=== PATIENT | male | born 1940 | race Caucasian/White ===

== ENCOUNTER 2016-09-24 18:04 | Inpatient (IN) | payer OTHER ==
[~2016-09-24] VITALS: Ht 180.3 cm; Wt 76.0 kg
[~2016-09-24 18:04] MED LIST: BAYER CHEWABLE81 MG PO; BENICAR HCT 40-1 TA1 PO; BROVANA15 MCG/2 M INH; BUMEX 1 MG TAB1 MG PO; CARAFATE1 G PO; CHRONULAC30 ML PO; CORDARONE200 MG PO; DALIRESP500 MCG PO; ELIQUIS2.5 MG PO; FLOMAX0.4 MG PO; FLORAJEN3 CAPS460 MG PO; IPRAT-ALBUT 0.5-3 ML UPD; K-DUR20 MEQ PO; LASIX40 MG PO; MAG-OX 400 MG400 MG PO; MELATONIN 3 MG1 TAB PO; MUCINEX DM ER1 EAC1 PO; MUCINEX600 MG PO; NEURONTIN 300300 MG PO; NORVASC5 MG PO; NYSTATIN ORAL SU5 ML PO; OMEPRAZOLE20 M1 PO; ONCOLOGY MOUTHWA5 ML PO; PLAVIX75 MG PO; PRAVACHOL20 MG PO; PREDNISONE20 MG PO; PRILOSEC20 MG PO; PULMICORT0.5 MG/21 UPD; SINGULAIR10 MG PO; TESSALON PERLE100 MG PO; TOPROL XL200 MG PO; VIBRAMYCIN 100100 MG PO; VOLTAREN100 MG PO
[2016-09-24 19:00] VITALS: BP 110/60
--- NOTE | 2016-09-24 19:00 | NUR ---
Assessment complete. See flowsheet. Pt awake with daughter at bedside with VSS. Pt alert, oriented to person, place, time and situation. Pupils size 3 bilaterally ERRLA. Pt receiving O2 @ 3L NC with respirations shallow/unlabored. Lung sounds CTA with diminished lower lobes. HR CAF with S1S2 auscultated. All peripheral pulses +2 with capillary refill <3 seconds. PIV site to right forearm CDI no s/s infection or infiltration with NS infusing @ 10cc/hr KVO rate. BS + to all quadrants. Abdomen flat, non-tender. Barksdale catheter secure retrieving concentrated, michel urine. SCDs secure to lower extremities bilaterally. Pt pulled up in bed and positioned to left side with arms and heels bridged and HOB elevated to 30 degrees. temp 97.2F temporally and room warmed. Call light and bedside table placed within pt reach. Pt denies further needs at this time. CPOC.
[2016-09-24 20:00] VITALS: BP 102/65
[2016-09-24 21:00] VITALS: BP 93/68
--- NOTE | 2016-09-24 21:00 | NUR ---
Pt helped to bedpan for stool approx 200cc liquid, brown-green with bedbath plus gown and linen changes completed. Mepilex dressing removed for skin inspection to coccyx/buttox yields a reddened coccyx and a midline skin break to the inner lower portion of the rectal crevice measuring 1" in height staged II with no drainage noted. Site cleansed and mepilex dressing applied and secured. Pt pulled up in bed and positioned to left side. Dilaudid SENIOR TRAINER setup completed. See MAR. PM medications administered. See MAR. Pt provided with armando mathew per request. No further request at this time. Call light and bedside table remain within pt reach. CPOC.
[2016-09-24 21:15] VITALS: BP 110/60; BMI 23.4
[2016-09-24 22:00] VITALS: BP 106/65
[2016-09-24 23:00] VITALS: BP 105/60
--- NOTE | 2016-09-24 23:00 | NUR ---
Reassessment complete. See flowsheet. Pt resting quietly with VSS. No s/s pain or distress and awakens easily to verbal stimulation with no neuro changes to note. Pt remains calm and cooperative. O2 @ 3L NC. Respirations unlabored. Lung sounds remain CTA with diminished lower lobes. HR CAF with S1S2 auscultated. All peripheral pulses remain +2 with capillary refill <3 seconds. PIV site remains CDI with NS @ KVO with Dilaudid HOP SORTER infusing @ 0.5mg/hr per order. BS +. Barksdale remains secure retrieving concentrated, michel urine. Pt helped to position to back with HOB @ 30 degrees. Pt denies further needs at this time. Call light and bedside table remain within pt reach. CPOC.
[2016-09-25] VITALS (12 sets, daily range): BP systolic 92–111; BP diastolic 65–75; Ht 180.3 cm; Wt 76.0 kg
--- NOTE | 2016-09-25 01:00 | NUR ---
Pt awake and conversive. VSS. Pt remains calm and cooperative and provided with ice water per request. No further request at this time. Call light and bedside table remain within pt reach. CPOC.
--- NOTE | 2016-09-25 03:00 | NUR ---
Pt resting and awakened for repositioning to back with HOB elevated. VSS. No changes to note. Pt denies pain. O2 @ 3L NC. HR CAF. BS +. PIV site CDI with NO IVF changes to note. Barksdale remains secure retrieving concentrated, michel urine. Pt denies further needs at this time. Call light and bedside table remain within reach. CPOC.
--- NOTE | 2016-09-25 04:18 | NUR ---
Pt nauseated and refusing IV Dilaudid at this time. Dilaudid WAGE AND SALARY SPECIALIST turned off per pt request. Pt vomiting approx 200cc clear fluid at this time. Zofran 4mg IV administered. See NOV.
--- NOTE | 2016-09-25 05:00 | NUR ---
Pt resting with VSS and allowed to continue resting undisturbed. Call light and bedside table remain within pt reach. CPOC.
--- NOTE | 2016-09-25 12:18 | NUR ---
COMPLETE BED BATH AND LINEN CHANGE. PT'S FAMILY ASSISTED WITH SHAVING. BROWN CARE COMPLETED. BABY POWDER AND DEODORANT APPLIED.
--- NOTE | 2016-09-25 19:00 | NUR ---
Assessment complete. See flowsheet. Pt awake upon entrance into room with VSS. Pt alert, following all commands and conversation with no neuro deficits to note. Pt moving all extremities with 3/5 strength and no edema noted. Respirations shallow and unlabored. Lung sounds present expiratory wheezing to all gonzalez. Pt receiving O2 @ 3L NC. HR CAF with S1S2 auscultated. All peripheral pulses +2 with capillary refill <3 seconds. BS +. Barksdale secure retrieving concentrated, michel urine. Temp 97.2F orally. Pt denies pain. Pt pulled up in bed and repositioned to left side. Air overlay mattress. SCDs secured to lower extremities bilaterally. Arms and heels bridged. Pt provided with fresh soda per request. Call light and bedside table remain within pt reach. CPOC.
--- NOTE | 2016-09-25 21:00 | NUR ---
Pt awake and repositioned to right side. HOB @ 30 degrees. Pt denies further needs at this time and continues to watch television with VSS. Call light and bedside table remain within pt reach. CPOC.
--- NOTE | 2016-09-25 23:00 | NUR ---
Pt watching television with at bedside. VSS. Pt denies pain at this time. PIV saline locked. Dressing changes to right wrist and elbow skin abrasions completed after sites cleansed and dried. PIV site redressed. Pt helped to position to back with HOB @ 30 degrees. No other changes to note. Fresh clear soda provided per pt request. Call light and bedside table remain within pt reach. Further needs denied. CPOC.
--- NOTE | 2016-09-26 01:00 | NUR ---
Pt helped to bedpan with no stool produced. Linen changes completed afterwards with pericare. Pt pulled up in bed and positioned to left side. HOB elevated to 30 degrees with arms and heels bridged. Pt denies pain at this time. Further requests denied. Call light and bedside table remain within pt reach. CPOC.
[2016-09-26 03:00] VITALS: BP 101/70
--- NOTE | 2016-09-26 03:00 | NUR ---
Pt slightly confused and requesting his cap gun and his "piss jug" and reoriented. Pt remains calm but does not follow conversation and strays to other stories that do not make sense. O2 @ 3L NC. HR CAF. Lung sounds present crackles to all gonzalez with expiration. Pt encouraged to cough with no sputum produced. BS +. Barksdale remains secure and pt reminded to void and it will collect into the collection bag. Pt verbalizes understanding. Pt positioned to back for AM CXR. Arms and heels bridged. Call light and bedside table remain within pt reach. CPOC.
--- NOTE | 2016-09-26 05:00 | NUR ---
Pt confused and throwing cup of ice water at room door. Pt calmed. from waiting room and now at bedside. Linen change completed. Pt calm now. VSS.
[2016-09-26 07:00] VITALS: BP 109/73
--- NOTE | 2016-09-26 09:35 | NUR ---
REPORT CALLED TO ARABELLA HARVEY. PT TRANSFERED WITH FAMILY AND ALL PERSONAL BELONGINGS TO ROOM 2240 VIA BED. FAMILY ORIENTED TO ROOM. C/L IN REACH.
--- NOTE | 2016-09-26 10:05 | NUR ---
RECIEVED PATIENT VIA BED WITH NURSE FROM ICU. PATIENT TALKING CONTINUOUSLY, HOLDING HIS HANDS UP IN THE AIR IF HE IS GRABBING THINGS THAT ARE NOT THERE. ASKED PATIENT "WOULD YOU LIKE SOMETHING TO DRINK?" PATIENT STATED "YEAH I HAVE SOME COFFEE RIGHT HERE." THEN GRABBED THE AIR THOUGH HE WAS HOLDING A CUP. BROUGHT PATIENT ICE-WATER. FAMILY DENIES NEEDS. PATIENT IS MOVING HIS ARMS AND LEGS AROUND IN THE BED. BED IN LOWEST POSITION, CALL LIGHT IN REACH. FAMILY AT BEDSIDE. PATIENT HAS A NASAL CANNULA ON RECIEVING 5L/MIN OF OXYGEN.BROWN CATHETER DRAINING TO GRAVITY.
--- NOTE | 2016-09-26 11:05 | NUR ---
PATIENT WIGGLED DOWN TO THE END OF THE BED WITH LEGS PARTIALLY OFF THE BED. WITH ASSIST FROM ANOTHER NURSE, GOT PATIENT BACK UP INTO THE BED. FAMILY AT BEDSIDE. SPOKE WITH PATIENT'S ABOUT ATIVAN, AGREED STATING "YES LET'S TRY IT. HE IS SO RESTLESS I DO NOT WANT TO LEAVE HIM. THERE IS NO WAY I WILL BE ABLE TO TAKE HIM HOME IF THIS KEEPS UP."
--- NOTE | 2016-09-26 13:00 | NUR ---
PATIENT RESTING QUIETLY WITH EYES CLOSED.
[2016-09-26 13:40] VITALS: BP 107/68
--- NOTE | 2016-09-26 15:25 | NUR ---
HOSPICE NURSE AT BEDSIDE. PATIENT MOVING AROUND IN THE BED, ARMS AND LEGS. PATIENT TALKING TO PEOPLE NOT THERE. AUDIBLE CRACKLES WITH RESPIRATIONS. PULLED PATIENT UP IN BED WITH HOSPICE NURSE. HOB 40 DEGREES. ADMINISTERED ATIVAN FOR RESTLESSNESS.
[2016-09-26 16:07] VITALS: BP 116/72
--- NOTE | 2016-09-26 17:57 | NUR ---
STATED DILAUDID MAKES PATIENT NAUSEOUS. PAGED 'S OFFICE, SPOKE WITH GARFIELD CAMPBELL SHE STATED SHE WILL CALL . SHANNAN CALLED BACK STATED " SAID TO DO MORPHINE 2MG IV Q2HP"
--- NOTE | 2016-09-26 19:30 | NUR ---
RECIEVED SHIFT REPORT. PT IS LYING IN BED. PT AROUSES TO VOICE. O2 @ 5 PER NASAL CANNULA. BROWN IS DRAINING URINE BY GRAVITY. PT REQUIRES ASSISTANCE TURNING IN BED FOR COMFORT AND SKIN CARE. PT SHOWS NO SIGNS OF PAIN AT THIS TIME. FAMILY IS AT BEDSIDE. NO NEEDS ARE VOICED. WILL CONTINUE TO MONITOR. SIDE RAILS ARE UP X 2. BED IS IN LOWEST POSITION. CALL LIGHT IS WITHIN REACH.
--- NOTE | 2016-09-26 20:00 | NUR ---
SHIFT ASSESSMENT COMPLETED. PT STATUS REMAINS UNCHANGED FROM PREVIOUS. WILL MONITOR. FAMILY AT BEDSIDE. NO NEEDS VOICED. SIDE RAILS X 2. BED LOW. CALL LIGHT IN REACH.
--- NOTE | 2016-09-26 23:30 | NUR ---
PT WRITHING IN BED AND LEGS ALMOST HANGING OFF. PT FAMILY REQUESTING PRN MORPHINE AT THIS TIME. 2MG ADMINISTERED PER ORDER. PT ALSO WITH SECRETIONS. ADMINISTERED PRESCRIBED PRN ATROPINE DROPS. POSITIONED FOR COMFORT. NO FURTHER NEEDS. WILL MONITOR. FAMILY AT BEDSIDE. SIDE RAILS X 2. BED LOW. CALL LIGHT IN REACH.
--- NOTE | 2016-09-27 07:34 | NUR ---
REQUESTED AND GIVEN 2MG MORPHINE SLOW IVP FOR C/O GENERALIZED PAIN. WILL MONITOR.
[2016-09-27 08:21] VITALS: BP 120/82
--- NOTE | 2016-09-27 08:34 | NUR ---
FAMILY REQUESTED AND PATIENT GIVEN 1 GT ATROPINE PER ORDERS FOR RESTLESSNESS. WILL MONITOR.
[2016-09-27 12:45] VITALS: BP 109/70
--- NOTE | 2016-09-27 13:34 | NUR ---
PATIENT IS VERY RESTLESS. CONFUSED AT THIS TIME. FAMILY REQUESTED AND PATIENT GIVEN 2MG MORPHINE SLOW IVP FOR PAIN. WILL MONITOR.
--- NOTE | 2016-09-27 16:00 | NUR ---
BARREL LOADER INITIATED TO IMPROVE PAIN MANAGEMENT. FAMILY IN AGREEMENT WITH THIS.
[2016-09-27 16:30] VITALS: BP 109/66
--- NOTE | 2016-09-27 18:29 | NUR ---
RESTING QUIETLY WITH EYES CLOSED. FAMILY AT BEDSIDE. NO CHANGES NOTED AT THIS TIME
[2016-09-27 19:00] VITALS: BP 112/99
--- NOTE | 2016-09-27 19:53 | NUR ---
EXISTING SCOPOLAMINE PATCH REMOVED BEHIND PT'S RIGHT EAR AND NEW PATCH APPLIED PRESCRIBED BEHING PT'S LEFT EAR. FAMILY AT BEDSIDE. BROWN PATENT AND DRAINING TO GRAVITY. FIRST STEP OVERLAY IN USE. OXYGEN ON 5L VIA NC. RIGHT FOREARM IV PATENT AND INFUSING PRESCRIBED FLUIDS AND CORD TIRE BUILDER MORPHINE AT 1MG/HR CONTINUOUS. PT IS ALERT, BUT CONFUSED. ASSESSMENT PERFORMED PER FLOWSHEET. PRN ATROPINE DROP ADMINISTERED SL FOR INCREASED SECRETIONS. PROVIDED PT WITH ICE WATER FOR A DRINK. CALL LIGHT IN REACH, WILL CONTINUE WITH COMFORT MEASURES.
--- NOTE | 2016-09-27 21:30 | NUR ---
PT SLEEPING AT THIS TIME. FAMILY REMAINS AT BEDSIDE. NO CHANGES SINCE INITIAL ASSESSMENT. CALL LIGHT IN REACH, WILL CONTINUE WITH COMFORT MEASURES.
--- NOTE | 2016-09-28 03:27 | NUR ---
MORPHINE CHICK GRADER SYRINGE CHANGED D/T EMPTY SYRINGE AT THIS TIME. BROWN CARE PROVIDED WITH SOAP AND WATER. FAMILY REMAINS AT BEDSIDE. CALL LIGHT IN REACH. NO CHANGES SINCE INITIAL ASSESSMENT. WILL CONTINUE WITH PLAN OF CARE.
--- NOTE | 2016-09-28 06:34 | NUR ---
SCHEDULED LASIX ADMNISTERED WELL ATROPINE DROPS FOR INCREASED SECRETIONS. RECEIVING BREATHING TREATMENT AT THIS TIME. FAMILY REMAINS AT BEDSIDE. WILL CONTINUE WITH COMFORT MEASURES.
--- NOTE | 2016-09-28 07:28 | NUR ---
RESTING QUIETLY WITH EYES CLOSED. ROUSES TO VERBAL STIMULATION. LUNGS WITH CRACKLES AND WHEEZES THROUGHOUT LUNG HELLER. OCCASSIONAL NON PRODUCTIVE COUGH NOTED. SKIN IS INTACT WITHOUT REDNESS EXCEPT RIGHT ELBOW AND WRIST ABRASIONS. SOME REDNESS NOTED TO COCCYX AREA. IV TO RIGHT WRIST PATENT WITHOUT REDNESS AT INSERTION SITE. NO NEEDS NOTED. BROWN PATENT WITH CLEAR YELLOW URINE. FAMILY AT BEDSIDE.
[2016-09-28 07:54] VITALS: BP 133/70
--- NOTE | 2016-09-28 10:36 | NUR ---
RESTING QUIETLY IN BED. HOB UP 45 DEGREES. FAMILY AT BEDSIDE.
[2016-09-28 11:52] VITALS: BP 113/65
--- NOTE | 2016-09-28 12:00 | NUR ---
NO CHANGES AT THIS TIME. RESP ARE AT AROUND 12. FAMILY AT BEDSIDE.
--- NOTE | 2016-09-28 14:00 | NUR ---
NO CHANGES NOTED. NO NEEDS EXPRESSED. FAMILY AT BEDSIDE.
[2016-09-28 16:48] VITALS: BP 140/72
--- NOTE | 2016-09-28 18:15 | NUR ---
FAMILY AT BEDSIDE. SITTING UP IN BED OCCASSIONALLY CONVERSING WITH FAMILY. NO CHANGES NOTED.
--- NOTE | 2016-09-28 20:32 | NUR ---
PRN ZOFRAN ADMINISTERED AT THIS TIME PT IS VOMITING MEDIUM AMOUNT OF CLEAR LIQUID WITH PHLEGM. FAMILY AT BEDSIDE. PT PROVIDED WITH FRESH ICE WATER AND CLEAN GOWN. BROWN PATENT AND DRAINING TO GRAVITY. CALL LIGHT IN REACH OF . WILL CONTINUE WITH PLAN OF CARE.
[2016-09-28 21:18] VITALS: BP 113/70
--- NOTE | 2016-09-28 23:00 | NUR ---
FULL BED BATH PROVIDED AND PT LOTIONED DOWN. IV TO RIGHT FOREARM WITHOUT BLOOD RETURN. 22G IV STARTED TO PT'S RIGHT HAND X1 ATTEMPT. IV TO RIGHT FOREARM D/C WITH CATH TIP INTACT. BROWN PATENT AND DRAINING TO GRAVITY. FAMILY REMAINS AT BEDSIDE. ASSESSMENT PERFORMED PER FLOWSHEET. MEPILEX DRESSING REMAINS TO BUTTOCK. CALL LIGHT IN REACH OF FAMILY. WILL CONTINUE WITH PLAN OF CARE.
--- NOTE | 2016-09-29 03:30 | NUR ---
PT VOMITING MODERATE AMOUNT OF CLEAR LIQUID WITH PHLEGM. PRN ATIVAN AND ZOFRAN ADMINISTERED PER ORDER. PT IS VERY RESTLESS, BUT COMPLETELY ALERT AND ORIENTED. FAMILY REMAINS AT BEDSIDE. IV TO RIGHT HAND PATENT. CALL LIGHT IN REACH, WILL CONTINUE WITH PLAN OF CARE.
--- NOTE | 2016-09-29 08:14 | NUR ---
AWAKE AND ALERT. ORIENTED TO SELF. RESPONDS APPROPRIATLY TO YES NO QUESTIONS. FAMILY AT BEDSIDE. LUNGS HAVE WHEEZES AND CRACKLES THROUGHOUT LUNG HELLER. OCCASSIONAL DRY COUGH NOTED. SKIN IS INTACT WITHOUT REDNESS EXCEPT STAGE 2 TO COCCYX. IV TO RIGHT HAND PATENT WITHOUT REDNESS AT INSERTION SITE. BROWN PATENT WITH TEA COLORED URINE. O2 AT 5L NC. NO NEEDS NOTED. ON FIRST STEP OVERLAY.
[2016-09-29 08:15] VITALS: BP 113/61
[2016-09-29 11:46] VITALS: BP 111/69
--- NOTE | 2016-09-29 11:46 | NUR ---
FAMILY REQUESTED ATIVAN FOR LEGS JERKING. GIVEN 1MG SLOW IVP. WILL MONITOR.
--- NOTE | 2016-09-29 13:00 | NUR ---
RESTING QUIETLY WITH EYES CLOSED. NO NEEDS NOTED. FAMILY AT BEDSIDE.
--- NOTE | 2016-09-29 15:00 | NUR ---
REPOSITIONED PER [place] FAMILY REQUEST. NO NEEDS NOTED.
[2016-09-29 16:10] VITALS: BP 110/61
--- NOTE | 2016-09-29 18:12 | NUR ---
GIVEN LASIX ORDERED. FAMILY AT BEDSIDE. NO NEEDS NOTED. DENIES NAUSEA AT THIS TIME.
[2016-09-29 19:00] VITALS: BP 99/59
--- NOTE | 2016-09-29 21:41 | NUR ---
RESTING QUIETLY WIHT NO DISTRESS NOTED. O2 AT 5L PER NC ON. BILATERAL LUNG SOUNDS WITH WHEEZING NOTED. IV NS INFUSING TO RIGHT HAND WIHTOUT REDNESS OR EDEMA NOTED. PRINT AND PATTERN DESIGNER MORPHINE IN USE FOR PAIN CONTROL. CL IN REACH . FAMILY AT BEDSIDE.
--- NOTE | 2016-09-30 01:14 | NUR ---
POSITIONED FOR COMFORT.NO DISTRESS .FAMILY REMAINS AT BEDSIDE
--- NOTE | 2016-09-30 03:00 | NUR ---
EYES CLOSED RESP EVEN. NO DISTRESS NOTED.CL IN REACH. FAMILY REMAINS AT BEDSIDE.
--- NOTE | 2016-09-30 05:08 | NUR ---
PATIENT RESTING WITH EYES CLOSED AND NO DISTRESS NOTED. O2 @ 5L VIA NC. IV TO RIGHT HAND PATENT AND INFUSING 1MG CONT. MORPHINE. AT BEDSIDE.
--- NOTE | 2016-09-30 06:47 | NUR ---
EYES CLOSED RESP EVEN. NO CHANGE IN ASSESSMENT
--- NOTE | 2016-09-30 07:10 | NUR ---
PATIENT IS RESTING QUIETLY IN HI FOWL[place]. HE IS RECEIVING AN UPDRAFT TREATMENT. HE IS ALERT TO MY PRESENCE, MAKES EYE CONTACT AND WAVES FINGERS. IS RESTING WITH EYES CLOSED AT THE BEDSIDE.
[2016-09-30 08:04] VITALS: BP 102/62
--- NOTE | 2016-09-30 10:06 | NUR ---
PATIENT RESTING IN BED, MANY FAMILY MEMBERS AT THE BEDSIDE. HIS EYES ARE PARTIALLY CLOSED. RESPIRATIONS ARE SHALLOW, EVEN.
--- NOTE | 2016-09-30 15:42 | NUR ---
HOSPICE NURSE AT THE BEDSIDE. MANY FAMILY MEMBERS AROUND. HIS RESPIRATIONS ARE UNLABORED, WITH PAUSES BETWEEN BREATHS. BROWN REMAINS PATENT TO BEDSIDE DRAINAGE.
[2016-09-30 19:00] VITALS: BP 113/60
--- NOTE | 2016-09-30 20:30 | NUR ---
CHANGED SCOPALAMINE PATCH BEHIND LEFT EAR. REPOSITIONED PATIENT TO LEFT SIDE.
--- NOTE | 2016-10-01 01:00 | NUR ---
REPOSITIONED PATIENT TO RIGHT SIDE.
--- NOTE | 2016-10-01 04:00 | NUR ---
PATIENT SLEEPING COMFORTABLY. FAMILY ASKED THAT WE NOT MOVE HIM RIGHT NOW.
--- NOTE | 2016-10-01 05:30 | NUR ---
PATIENT SLEEPING SUPINE IN BED. HOB 40 DEGREES. AROUSES TO VOICE. RR EVEN AND UNLABORED. O2 @ 5L VIA NC. 0 S/S OF DISTRESS. DENIES PAIN AT THIS TIME. IV TO RIGHT HAND PATENT AND INFUSING MORPHINE CONT. AT 1MG/HR. BROWN SECURED WITH STATLOCK AND DRAINING TO GRAVITY. DRESSING TO COCCYX CDI. FAMILY AT BEDSIDE. B/A ON. SRX2. BED LOW. CALL LIGHT WITHIN REACH.
--- NOTE | 2016-10-01 07:30 | NUR ---
PATIENT IS SLEEPING, SPOUSE AND DAUGHTER AT BEDSIDE. ASKED FAMILY IF THEY NEEDED ANYTHING ANF THYE DENY.
[2016-10-01 08:10] VITALS: BP 110/70
--- NOTE | 2016-10-01 09:30 | NUR ---
PATIENT IS AWAKE, AROUSES TO VOICES, BUT HE IS LETHARGIC. FAMILY AT BEDSIDE, NO NEEDS NOTED AT THIS TIME.
--- NOTE | 2016-10-01 11:00 | NUR ---
PATIENT IS RESTING AND FAMILY IS SITTING AT BEDSIDE, NO NEEDS NOTED.
--- NOTE | 2016-10-01 11:50 | NUR ---
NO NEEDS AT THIS TIME.
--- NOTE | 2016-10-01 13:00 | NUR ---
PATIENT RESTING EASILY, NO NEEDS AT THIS TIME.
--- NOTE | 2016-10-01 17:00 | NUR ---
FAMILY DENIES NEEDS AT THIS TIME.
--- NOTE | 2016-10-01 18:30 | NUR ---
CHECKED ON PATIENT AND HE ACTUALLY ASKED FOR SOMETHING TO SPIT IN, HANDED HIM A BASIN AND HE WAS ABLE TO HOLD IT TO HIS FACE. DENIES ANY OTHER NEEDS.
[2016-10-01 19:00] VITALS: BP 113/79
--- NOTE | 2016-10-01 19:00 | NUR ---
PATIENT SLEEPING SUPINE IN BED. HOB 30 DEGREES. AROUSES TO VOICE. RR SHALLOW BUT UNLABORED. 0 S/S OF DISTRESS. DENIES PAIN. IV TO RIGHT HAND PATENT AND INFUSING MORPHINE 1MG/HR CONT. O2 @ 5L. BROWN SECURED WITH STATLOCK AND DRAINING TO GRAVITY. DRESSING TO COCCYX CDI. B/A ON. FAMILY AT BEDSIDE. SRX2. BED LOW. CALL LIGHT WITHIN REACH.
--- NOTE | 2016-10-02 03:57 | NUR ---
PATIENT RECEIVED BATH AND DRESSING CHANGE TO COCCYX. HAVE BEEN TURNING PATIENT Q2. ATTEMPTED TO TURN PATIENT NOW BUT FAMILY REQUESTED THAT WE LET HIM SLEEP.
[2016-10-02 07:49] VITALS: BP 110/75
--- NOTE | 2016-10-02 08:14 | NUR ---
AWAKE AND ALERT. ORIENTED X3. RESPONDS APPROPRIATELY TO YES NO QUESTIONS. LUNGS WITH CRACKLES AND WHEEZES THROUGHOUT, OCCASSIONAL PRODUCTIVE COUGH NOTED. SKIN IS INTACT WITHOUT REDNESS EXCEPT SMALL STAGE 2 TO COCCYX. ON FIRST STEP OVERLAY. IV TO RIGHT HAND PATENT WITHOUT REDNESS AT INSERTION SITE. BROWN PATENT WITH TEA COLORED URINE. FAMILY AT BEDSIDE. NO NEEDS NOTED.
--- NOTE | 2016-10-02 10:30 | NUR ---
RESTING QUIETLY. FAMILY AT BEDSIDE. REPOSTITIONED FOR COMFORT PER STAFF.
[2016-10-02 12:22] VITALS: BP 105/63
--- NOTE | 2016-10-02 13:31 | NUR ---
REFUSED TO ATTEMPT ANY LUNCH. REPOSTIONED TO LEFT SIDE PER STAFF. FAMILY AT BEDSIDE.
[2016-10-02 16:00] VITALS: BP 117/71
--- NOTE | 2016-10-02 17:18 | NUR ---
FAMILY REQUESTED ATIVAN FOR RESTLESSNESS. GIVEN 1MG SLOW IVP FOR SAME. WILL MONITOR. REFUSED TO EAT ANY SUPPER AT THIS TIME. NO CHANGES NOTED.
[2016-10-02 20:43] VITALS: BP 127/60
[2016-10-03 08:04] VITALS: BP 116/69
--- NOTE | 2016-10-03 08:04 | NUR ---
RESTING WITH EYES CLOSED. ROUSES TO VERBAL STIMULATION. NOT TALKING AT THIS TIME. LUNGS WITH CRACKLES AND WHEEZES THROUGHOUT LUNG HELLER. SKIN IS INTACT WITHOUT REDNESS EXCEPT SMALL STAGE 2 TO COCCYX WHICH HAS A MEPELEX DRESSING IN PLACE. BROWN PATENT WITH CLEAR TEA COLORED URINE. IV TO RIGHT HAND PATENT WITHOUT REDNESS AT INSERTION SITE. SOME EDEMA NOTED TO BILATERAL HANDS. FAMILY AT BEDSIDE. O2 AT 4.5LNC. NO NEEDS NOTED.
--- NOTE | 2016-10-03 09:50 | NUR ---
FAMILY REQUESTED AND PATIENT GIVEN 1MG ATIVAN SLOW IVP FOR RESTLESSNESS. WILL MONITOR.
[2016-10-03 15:59] VITALS: BP 112/62
[2016-10-03 19:00] VITALS: BP 110/62
[2016-10-04 08:07] VITALS: BP 118/66
--- NOTE | 2016-10-04 09:00 | NUR ---
ASSESSMENT PER FLOW SHEET.PT WITHOUT DISTRESS.CALL LIGHT IN REACH
--- NOTE | 2016-10-04 16:29 | NUR ---
ORDERS RECIEVED AND INITIATED PER DR SCHWARZ
--- NOTE | 2016-10-04 18:45 | NUR ---
MEDS ORDERED PER NOV.INCREASED SECRETIONS.FAMILY AT BEDSIDE.CONT PLAN OF CARE
--- NOTE | 2016-10-04 19:25 | NUR ---
PATIENT OBSERVED GASPING. RESPIRATIONS 41. O2 AT 5L NC. PRN ATIVAN GIVEN ORDERED. FAMILY DENIES NEEDS AT THIS TIME.
== END 2016-10-04 20:15 | DRG 951 ==
LOC: D.ICU 18:04 → D.MS 20:04 → D.ICU 20:04 → D.MS 09-26 09:37
PROVIDERS: ADMIT Legal Medicine
DX: Z51.5 Encounter for palliative care (principal)